=== PATIENT | female | born 1990 | race Caucasian/White ===

== ENCOUNTER → 2023-03-15 15:45 | Outpatient (CLI) | payer OTHER, BC, SELFPAY ==
[2023-03-15 16:03] LABS: Specimen Label NATERA
[2023-03-15 16:34] LABS: Add Manual Diff / Slide Review NO; Basophils Absolute Auto 0 /uL (0-100); Basophils Percent Auto 0.2 % (0-2); Eosinophils Absolute Auto 100 /uL (0-450); Eosinophils Percent Auto 1.5 % (2-4); Hematocrit 37.8 % (36-46); Hemoglobin 12.8 g/dL (12.0-16.0); Lymphocytes Absolute Auto 2300 /uL (1100-4500); Lymphocytes Percent Auto 23.7 % (25-40); Mean Corpuscular Hemoglobin 29.5 PG (26-34); Mean Corpuscular Volume 86.8 fL (80-100); Monocytes Absolute Auto 700 /uL (0-900); Monocytes Percent Auto 6.9 % (3-14); Neutrophils Absolute Auto 6700 /uL (1500-7000); Neutrophils Percent Auto 67.7 % (50-75); Platelet Count 275 X10^3/uL (150-400); Red Blood Cell Count 4.35 X10^6/uL (4.0-5.2); Red Cell Distribution Width 12.6 % (11.6-14.8); White Blood Cell Count 9.9 X10^3/uL (4.5-11.0)
[2023-03-17 06:08] LABS: RPR Screen Non Reactive (Non Reactive)
[2023-03-17 10:07] LABS: Varicella IgG Antibody 695 index (Immune >165)
[2023-03-18 09:16] LABS: HIV 1 & 2 Ab/Ag 4th Gen Combo NEGATIVE (NEGATIVE); Hep C Virus Ab w/Reflex Quant NEGATIVE s/c (NEGATIVE); Hepatitis B Surface Antigen NEGATIVE s/c (NEGATIVE); Rubella Antibody IgG 45.7 IU/mL (>15)
== END ==
PROVIDERS: PCP Registered Nurse; Referring Provider Specialist; Visit Provider Specialist
DX: Z34.81 Encounter for supervision of other normal pregnancy, first trimester (principal)
CPT/HCPCS: 36415; 80055; 86787; 86803; 86850; 86900; 86901; 87389

== ENCOUNTER → 2023-05-06 09:47 | Outpatient (CLI) | payer OTHER, BC, SELFPAY ==
[2023-05-08 21:21] LABS: AFP Value 57.3 ng/mL (.); Gest Age on Col Date 17.6 weeks (.); Insulin Dep Diabetes No (.); OSBR Risk 1IN 4529 (.); Results Report (.); Test Results *Screen Negative* (.)
== END ==
PROVIDERS: Referring Provider Student in an Organized Health Care Education/Training Program; Visit Provider Student in an Organized Health Care Education/Training Program
DX: Z34.82 Encounter for supervision of other normal pregnancy, second trimester (principal); Z3A.17 17 weeks gestation of pregnancy
CPT/HCPCS: 36415; 82105

== ENCOUNTER → 2023-05-29 07:51 | Outpatient (CLI) | payer OTHER, BC, SELFPAY ==
--- NOTE | 2023-05-29 07:52 | DI.US.S_ITS ---
PROCEDURE: US OB >= 14 WEEKS FETUS INDICATIONS: ANATOMY OUTSIDE/PRIOR DATING DATA: Last menstrual period (LMP): 01/03/2023. LMP-based estimated date of delivery (RICK): 10/10/2023. First dating scan (date and location): 03/15/2023. Estimated date of delivery (RICK) from first dating scan: 10/07/2023. The calculations are made using the ultrasound RICK of 10/10/2023. TECHNIQUE: Real-time scanning was performed of the fetus, with image documentation and biometric measurements. COMPARISON: None. FINDINGS: General: A single living intrauterine gestation is present. Presentation: Vertex. Placenta: Placental position is posterior , without previa. Amniotic fluid index: 11.0 cm, normal range is 5-24 cm. Single deepest vertical pocket is 3.3 cm. heart rate: 137 beats per minute. Maternal cervical canal: 5.6 cm long. Normal lower limit is 2.5 cm. biometrics: Biparietal diameter: 5.1 cm. 21 weeks 2 days Head circumference: 19.3 cm. 21 weeks 3 days Abdominal circumference: 16.4 cm. 21 weeks 3 days Femur length: 3.5 cm. 21 weeks 0 days Clinically estimated gestational age: 20 weeks 6 days Composite gestational age from present scan: 21 weeks 2 days Estimated weight and percentile: 512 grams. 68th percentile. Anatomic survey: Neuro: Ventricles are non-dilated at less than 10 mm. Cisterna magna is normal at 3-11 mm. Cerebellum is normal in size and morphology. Nuchal skin fold: Normal at less than 6 mm between 14-21 weeks gestational age. Face: Nose and lips, facial profile are normal. Spine: No evidence for spina bifida. Heart: 4-chambered heart is present, with normal ventricular outflow tracts. Diaphragm: Diaphragm is intact. Stomach: Left-sided stomach is present. Kidneys: No hydronephrosis. Normal is less than 5 mm in 2nd trimester, less than 7 mm in 3rd trimester. Cord: 3-vessel cord has orthotopic insertion. Bladder: Normal in size. Extremities: All 4 extremities identified. IMPRESSION: 1. Single live intrauterine . 2. All anatomy was visualized and it is normal. 3. In the left adnexa there is a hypoechoic focus measuring 3.9 x 2.7 x 2.4 cm which has no vascularity and was nontender during the exam which is of unclear identification. Recommend follow-up on subsequent imaging. Dictated by: Keny Foreman M.D. on 05/29/2023 at 17:01 Approved by: Keny Foreman M.D. on 05/29/2023 at 17:07
== END ==
PROVIDERS: Referring Provider Student in an Organized Health Care Education/Training Program; Visit Provider Student in an Organized Health Care Education/Training Program
DX: Z3A.21 21 weeks gestation of pregnancy (principal); Z34.02 Encounter for supervision of normal first pregnancy, second trimester
CPT/HCPCS: 76811

== ENCOUNTER → 2023-07-05 07:17 | Outpatient (CLI) | payer OTHER, BC, SELFPAY ==
[2023-07-05 09:56] LABS: Hematocrit 35.6 % (36-46)
[2023-07-05 10:34] LABS: GTT (PREG) 1 Hour PP 50gm Dose 142 mg/dL (76-139)
== END ==
PROVIDERS: PCP Registered Nurse; Referring Provider Student in an Organized Health Care Education/Training Program; Visit Provider Student in an Organized Health Care Education/Training Program
DX: Z34.02 Encounter for supervision of normal first pregnancy, second trimester (principal); Z3A.17 17 weeks gestation of pregnancy; Z3A.26 26 weeks gestation of pregnancy
CPT/HCPCS: 36415; 82950; 85014; 85018

== ENCOUNTER → 2023-07-09 07:51 | Outpatient (CLI) | payer OTHER, BC, SELFPAY ==
[2023-07-09 09:46] LABS: Glucose Fasting Gestational 73 mg/dL (76-95)
[2023-07-09 10:17] LABS: Glucose 1 Hour Gest 92 mg/dL (76-180)
[2023-07-09 10:51] LABS: Glucose 2 Hour Gest 110 mg/dL (76-155)
[2023-07-09 11:19] LABS: Glucose Tol Interp,Gestational INTERPRETATION
[2023-07-09 12:02] LABS: Glucose 3 Hour Gest 47 mg/dL (76-140)
== END ==
PROVIDERS: PCP Registered Nurse; Referring Provider Student in an Organized Health Care Education/Training Program; Visit Provider Student in an Organized Health Care Education/Training Program
DX: O99.810 Abnormal glucose complicating pregnancy (principal)
CPT/HCPCS: 36415; 82951; 82952

== ENCOUNTER → 2023-09-12 11:49 | Outpatient (CLI) | payer BC, SELFPAY ==
[2023-09-13 12:42] LABS: Strep Grp B PCR NEG for Grp B Strep
== END ==
PROVIDERS: PCP Registered Nurse; Visit Provider Physician Assistant Medical
DX: Z34.83 Encounter for supervision of other normal pregnancy, third trimester (principal); Z3A.36 36 weeks gestation of pregnancy
CPT/HCPCS: 87653

== ENCOUNTER 2023-10-01 21:45 | Inpatient (IN) | payer BC, SELFPAY ==
--- NOTE | 2023-10-01 22:57 | P.HPOB_ITS ---
OB HPI Date/Time Date of admission: 10/01/23 Date Patient Seen: 10/01/23 Time Patient Seen: 22:57 History of Present Condition Chief complaint: observation of labor : 2 Para: 0 Estimated Date of Delivery: 10/10/23 Estimated Gestational Age (weeks): 38+5 Narrative: Gita Jackson is a 33 year old female Comments: admitted for induction of labor due to PROM at home around 8pm. She has not felt any contractions. Clear fluid with rupture. No vaginal bleeding. Normal movement. Indications Indication for induction OB: other History of Present care: good care Dating criteria: LMP confirmed by 1st trimester US Ultrasounds: normal mid trimester US Obstetrical complications: none Medical complications: none Narrative: Baby boy Eulogio Zuniga AMA--> cfDNA- neg XY; neg carrier screen 2021; neg AFP Abnormal 1hr (142), normal 3hr GTT Eulogio Assigned to Dr. Zabala Preadmission Labs Blood type: B (+) positive -: Antibody screen: negative, Cystic fibrosis screen: negative, GBS status: negative, HBsAG: negative, HIV: negative, HSV 1: unknown, HSV 2: unknown and RPR/VDLR: negative -: Chlamydia screen: not detected and Gonorrhea screen: not detected -: Rubella: immune and Varicella: immune HCT: 35.6 HCAB: negative PAP: Normal Cell-free DNA: low risk XY 1 hr GTT: 142 3 hr GTT: 3 hr (normal) Evaluation Evaluation Baseline heart rate: 140 Variability: Moderate (11-25) monitor accelerations: Present Monitor Decelerations: Absent Contraction Frequency (minutes): 0 Status: Category l Dilation (cm): 1 Effacement (%): 25 Effacement: 0-30% station: -3 Position of cervix: posterior Consistency: medium Non-invasive Membranes Rupture Test: positive PFSH Medical History (Updated 09/06/23 @ 16:40 by Zuly Zabala DO) Seasonal allergies Surgical History (Updated 04/10/23 @ 21:25 by Annabelle Escobar) Anesthesia H/O dilation and curettage Hx of appendectomy (~2004) [place] teeth extracted (~2013) Family History (Updated 03/05/23 @ 14:41 by Ayleen Bess RN) Father Diabetes mellitus Hyperlipidemia Grandmother Diabetes mellitus Colon cancer Grandfather Diabetes mellitus Grandmother Diabetes mellitus Grandfather Diabetes mellitus Mother Hyperlipidemia Social History marital status: number of children: 0 household members: spouse lives independently: Yes caregiver/support person: No housing: house pets and animals: No education level: college occupational status: employed current occupational exposures/hazards: No special harika needs: No travel history: recent seatbelt use: always helmet use: Yes water heater temp set < 120 deg: No working smoke detector in home: Yes fire extinguisher in home: Yes carbon monox detector in home: Yes firearms in home: Yes firearms unloaded and locked: Yes do you feel safe at home: Yes Smoking Status: Never smoker second hand exposure: No alcohol intake: former substance use type: does not use during the past year weight has: remained stable well-balanced diet: daily or most days daily servings fruits/ve or more times/day caffeine: Yes (1 cup coffee in AM) Type(s) of exercise: walking, other, running and yoga Meds Home Medications and Allergies Home Medications Medication Instructions Recorded Confirmed Type vitamin-ferrous sulfate tab PO 03/05/23 09/27/23 History 27 mg iron-folic acid 0.8 mg tablet breast pump #1 ea 08/22/23 09/27/23 Rx Allergies Allergy/AdvReac Type Severity Reaction Status Date / Time No Known Drug Allergies Allergy Unverified 09/27/23 14:57 Review of Systems Review of Systems ROS: Yes All systems reviewed with the patient and are negative except as otherwise documented OB Exam HENMT Head: normal to inspection Resp Effort & Inspection: normal respiratory effort and able to speak in complete sentences Cardio Rate: regular rate Rhythm: regular rhythm Extremities Lower extremity: Yes normal to inspection GI Other: gravid, nontender, nondistended Assessment and Plan Assessment and Plan Assessment and Plan narrative: 33yo at 38+5wks admitted for induction of labor due to PROM at 8pm tonight. We discussed the risk/benefit of waiting for labor to begin, vs. proceeding with induction. After careful consideration and discussion with patient and her , she decided that she would like to proceed with induction. -CBC, T&S on admission -continuous EFM -epidural PRN -GBS neg, ppx not indicated -PPH risk low -VTE risk low, SCDs with epidural -anticipate L&D Counseling: Common procedures and interventions related to the management of were explained to the patient, including assistance at vaginal delivery with episiotomy, vacuum, or forceps, use of medications to stop premature labor or induce labor, and assessment including auscultation (listening to the fe sandrine heart), use of electronic monitoring (external and / or internal), and use of scalp electrode and/or intrauterine pressure catheter.? It was also explained that approximately 20-30% of mothers have a need for delivery during their labor course. It was explained to the patient that , labor and delivery are ordinarily normal physiological events and can be expected to provide a healthy outcome for mother and baby in the majority of cases. However, there are complications that may arise during , labor, and delivery, such as: hemorrhage requiring administration of blood and/or blood products, surgical intervention, possibly even hysterectomy for life-saving purposes; possibility of infection requiring antibiotics, prolonged hospital stay, and rarely surgical intervention; possibility of blood clots;? possibility of retained products of conception requiring surgical intervention;? possibility of serious tears or injury to the vagina, cervix, perineum, or rectum;? possibility of injury to abdominal structures if delivery is required;? and rarely maternal or may occur. Time Spent with Patient Total time spent with greater than 50% in coordination of care (as documented) at patient's floor/unit and/or counseling patient:: 25 - 35 minutes
[2023-10-01 23:51] LABS: Add Manual Diff / Slide Review NO; Basophils Absolute Auto 100 /uL (0-100); Basophils Percent Auto 0.6 % (0-2); Eosinophils Absolute Auto 100 /uL (0-450); Eosinophils Percent Auto 0.6 % (2-4); Hematocrit 36.8 % (36-46); Hemoglobin 12.3 g/dL (12.0-16.0); Lymphocytes Absolute Auto 2200 /uL (1100-4500); Lymphocytes Percent Auto 19.6 % (25-40); Mean Corpuscular HGB Conc 33.4 % (30-36); Mean Corpuscular Volume 86.8 fL (80-100); Monocytes Absolute Auto 900 /uL (0-900); Monocytes Percent Auto 7.8 % (3-14); Neutrophils Absolute Auto 8000 /uL (1500-7000); Neutrophils Percent Auto 71.4 % (50-75); Platelet Count 222 X10^3/uL (150-400); Red Blood Cell Count 4.24 X10^6/uL (4.0-5.2); Red Cell Distribution Width 13.7 % (11.6-14.8); White Blood Cell Count 11.1 X10^3/uL (4.5-11.0)
[2023-10-02] MEDS: miSOPROStoL 25 MCG TABLET 50 MCG PO (00:14)
[2023-10-02 01:19] VITALS: BP 111/76
[2023-10-02] MEDS: ONDANSETRON 4 MG/2 ML INJ IV (08:35)
--- NOTE | 2023-10-02 09:13 | PM.OBPNLAB ---
Date/Time Date Patient Seen: 10/02/23 Time Patient Seen: 09:13 Pain Control Pain control: tolerating well Pelvic Exam Dilation (cm): 3 Effacement (%): 100 station: -1 Amniotic membrane status: Ruptured Contractions Contractions on admission: none Contraction frequency (min): 3 Contraction pattern: Irregular Status status: Category l Heart Rate Baseline: 140 Monitor Accelerations: Present Monitor Decelerations: Absent Monitor Variability: Moderate Assessment and Plan Assessment: induction ongoing Plan: continuous present management Comments: Plan to start pitocin once contractions space out. Epidural prn. Anticipate .
--- NOTE | 2023-10-02 11:06 | PM.AN.REGBLK ---
Regional Block Pre-procedure PSH/Anesthesia history narrative: Appy ASA Class: II Labs: Hct 36.8 % (36-46) 10/01/23 23:35 Plt Count 222 X10^3/uL (150-400) 10/01/23 23:35 Medications: Current Medications Generic Name Dose Route Start Last Admin Trade Name Freq PRN Reason Stop Dose Admin Calcium Carbonate 1,000 mg 10/01/23 22:54 Calcium Carbonate 500 Mg Tab PO Q4HR PRN Dyspepsia Carboprost Tromethamine 250 mcg 10/01/23 22:54 Carboprost 250 Mcg/Ml Ampul IM Q90M PRN Bleeding Oxytocin/Lactated Ringer's 30 unit in 500 mls @ 200 mls/hr 10/01/23 22:54 Oxytocin Premix IV CONT PRN Bleeding Protocol Tranexamic Acid 1,000 mg/ 100 mls @ 200 mls/hr 10/01/23 22:54 Sodium Chloride IV NOW PRN Bleeding Lactated Ringer's 1,000 mls @ 100 mls/hr 10/01/23 23:00 Lactated Ringers IV CONT LINN Oxytocin/Lactated Ringer's 30 unit in 500 mls @ 2 mls/hr 10/02/23 09:15 Oxytocin Premix IV TITRATE REPLACED BY [facility] Protocol 2 MILLIUNIT/MIN Lidocaine HCl 20 ml 10/01/23 22:54 Lidocaine 1% 20 Ml INJ INTRA-OP PRN Post Delivery Methylergonovine Maleate 0.2 mg 10/01/23 22:54 Methylergonovine 0.2 Mg Tablet PO Q6HR PRN Heavy Bleeding Methylergonovine Maleate 0.2 mg 10/01/23 22:54 Methylergonovine 0.2 Mg/Ml Vial IM NOW PRN Bleeding Misoprostol 800 mcg 10/01/23 22:54 Misoprostol 200 Mcg Tablet PA NOW PRN Bleeding Misoprostol 400 mcg 10/01/23 22:54 Misoprostol 200 Mcg Tablet SL NOW PRN Bleeding Misoprostol 50 mcg 10/01/23 23:00 10/02/23 00:14 Misoprostol 25 Mcg Tablet PO 50 mcg Q4H LINN Administration Naloxone HCl 0.2 mg 10/01/23 22:54 Naloxone 0.4 Mg/Ml Vial IV Q2MIN PRN Opiate Reversal Ondansetron HCl 4 mg 10/01/23 22:54 10/02/23 08:35 Ondansetron 4 Mg/2 Ml Inj IV 4 mg Q4HR PRN Administration Nausea And Vomiting Oxytocin 10 unit 10/01/23 22:54 Oxytocin 10 Unit/Ml Vial IM NOW PRN Bleeding Allergies: Allergies Allergy/AdvReac Type Severity Reaction Status Date / Time No Known Drug Allergies Allergy Unverified 09/27/23 14:57 Procedure Insertion date: 10/02/23 Insertion time: 10:21 Prep/Local: 1% lidocaine (chloroprep) Interspace: L2-3 Patient position: sitting Needle: 18 gauge Marlene Loss of resistance with: saline TRINA at (cm): 6 Catheter placed at SKIN (cm): 11 Catheter in SPACE (cm): 5 Insertion: Yes Paresthesia with insertion Infusion Initial rate (mL/hr): 8 Subsequent interventions: 1630 3cc 0.5% marcaine plus 100mcg fentanyl bolused. Epidural infusion increased to 12cc/hr. Pt complaining of low abdominal pain and back pain. Post-procedure Anesthesia date START: 10/02/23 Anesthesia time START: 10:05 Anesthesia date END: 10/02/23 Anesthesia time END: 18:49 Post-procedure Anesthesia Assessment: Yes CV function: HR/BP stable, Yes Resp function: RR/sat/airway adequate, Yes Post-op hydration adequate, Yes Pain control adequate, Yes Nausea & vomiting absent, Yes Temperature > 36 C and Yes Mental status appropriate
[2023-10-02] MEDS: OXYTOCIN PREMIX 30 UNIT/500 ML PLAST..BAG IV (13:12)
--- NOTE | 2023-10-02 19:17 | PM.OBPRVD ---
Events: Premature Rupture Membrane Labor & Delivery Delivery date: 10/02/23 Intrapartal Events: None Cervical ripening method: per misoprostal protocol Induction method: per pitocin protocol Delivery monitor: external FHT and external uterine Route of delivery: Episiotomy description: Midline L&D Laceration Description: Perineal - 2nd Degree Delivery repair: vicryl Estimated blood loss (mL): 300 Anesthesia Type: Epidural Narrative: The patient progressed to C/C/+1 with pitocin augmentation and epidural anesthesia. After approximately 50min of maternal pushing efforts, the delivered to [facility]. With several more pushes, the infant was unable to clear the perineum, thus a modified Ritgen maneuver was attempted to deliver the head, however this was unsuccessful. The heart rate was then noted to be in the 80s sustained, thus decision was made to cut a small 2cm midline episiotomy. The 's head then immediately delivered in OA position and restituted ROT. The anterior shoulder delivered with gentle downward pressure, and the posterior shoulder and rest of body delivered with ease. The cord was doubly clamped and cut after a 60sec delay with the placed on maternal abdomen. The placenta delivered spontaneously and was intact with a 3-vessel cord. The fundus was noted to be firm with bimanual massage and pitocin. Inspection of the cervix, vagina, and perineum was notable for a 2nd degree perineal laceration. Repair was performed using 3-0 Vicryl in a running, unlocked fashion. Skin was reapproximated in a running, subcuticular fashion. At the end of the repair, all tissues noted to be hemostatic. All sponges were removed from the vagina. The patient tolerated delivery well and remained in the labor room with the infant at the bedside. [place] Baby 1: gender: Male score (1 min): 7 score (5 min): 9 weight: 7 lb 14.387 oz Plan for aftercare: Routine care
[2023-10-02] MEDS: IBUPROFEN 600 MG TABLET PO (20:23)
[2023-10-02] MEDS: ACETAMINOPHEN 325 MG TABLET 650 MG PO (20:24)
[2023-10-03] MEDS: ACETAMINOPHEN 325 MG TABLET 650 MG PO ×3 (02:29→14:22)
[2023-10-03] MEDS: IBUPROFEN 600 MG TABLET PO ×3 (02:29→14:22)
[2023-10-03] MEDS: PRENATAL VIT,CALC/IRON/FOLIC 1 TABLET 1 TAB PO (08:21)
[2023-10-03] MEDS: DOCUSATE 100 MG CAPSULE PO (08:21)
--- NOTE | 2023-10-03 14:33 | P.DS_ITS ---
Discharge Providers Provider Date of admission: 10/01/23 21:45 Discharge Date: 10/03/23 Primary care physician: JOANA Wilson Consults: 10/01/23 22:54 Consult to Anesthesiology Urgent Comment: Consulting Provider: Anesthesiologist Reason for consultation: Epidural 10/03/23 19:15 Consult to Senior Associate Routine Comment: Discharge provider: Zuly Zabala DO Summary Hospital Course Date Patient Seen: 10/03/23 Time Patient Seen: 11:30 Diagnoses: 1. Term gestation at 38+6wks 2. Prelabor rupture of membranes Hospital Course: 33yo [id number] admitted at 38+5wks for induction of labor due to prelabor rupture of membranes. She progressed to an uncomplicated vaginal delivery, productive of a viable male infant weighing 3583g with APGARs 7/9. Her course was uncomplicated. On day #1, she was ambulating, tolerating regular diet, voiding spontaneously with minimal lochia. Her pain was well controlled with oral medications, thus she was discharged to home on day #1. Peripartum Data Infant Delivery Method: Natural Vaginal Laceration Description: Perineal - 2nd Degree Episiotomy description: Midline Procedures: External monitoring Induction of labor Epidural anesthesia Spontaneous vaginal delivery Perineal episiotomy repair complications: none Discharge Diagnosis (1) Normal vaginal delivery: Status: Acute (2) Premature rupture of membranes: Status: Acute (3) Abnormal [place]ore glucose challenge test, antepartum: Status: Acute (4) Elderly primigravida, antepartum: Status: Acute Status at Discharge Cognitive/behavioral status at discharge: oriented Functional status at discharge: independent ambulation Overall status at discharge: patient is progressing back to baseline Time Spent with Patient Time attestation: Total time spent providing and/or coordinating discharge services: Time spent: Less than 30 minutes Objective Labs 10/01/23 23:35 Exam Vital Signs (past 8 hours): vitals reviewed in OBIX, within normal parameters Const General: cooperative, healthy appearing, comfortable and No acute distress Resp Effort & Inspection: normal respiratory effort GI Inspection: normal to inspection Other: fundus firm and nontender at U-2 Skin General: no rashes or lesions noted Neuro General: patient alert and patient awake Extrem General: normal to inspection, no pedal edema and no calf tenderness Psych Mood: congruent mood Affect: normal affect Discharge Plan Discharge Plan Patient Disposition: Home Provider Discharge Comment: Take ibuprofen 600 mg every 6 hours and acetaminophen 650 mg every 6 hours as needed for pain. You may use witch Luna pads, Sitz baths, and preparation H for hemorrhoid discomfort. Avoid constipation by drinking plenty of fluids, eating fiber, and use docusate (stool softener) as needed. Avoid placing anything in the vagina for at least 6 weeks. Discharge orders & Medications Prescriptions: Continued (DME) breast pump Device See Rx Instructions .ROUTE .MEDSUPPLY Qty: 1 0RF Rx Instructions: As directed vit-ferrous sulfat-FA 27 mg iron- 0.8 mg tablet PO Follow up/Referrals: Zuly Zabala DO [Physician] - 11/14/23 10:15 am Diet/Activity/Treatments Diet: Diet as Tolerated Activity: Ambulate as tolerated Skin/Wound/Dressing Care Report to your healthcare provider any signs of infection, such as:: chills, fever, increased pain, unusual drainage and unusual redness Visit Report/Discharge Packet Instructions: DI for Labor and Delivery, Vaginal Stand Alone Forms: Discharge: Care, Patient Portal/API, Stroke Signs & Symptoms Discharge Data Primary Care Provider: Trena Wilder
== END 2023-10-03 17:20 | disposition home or self-care (01) | DRG 807 ==
PROVIDERS: Admitting Provider Student in an Organized Health Care Education/Training Program; PCP Registered Nurse; Referring Provider Student in an Organized Health Care Education/Training Program; Visit Provider Student in an Organized Health Care Education/Training Program
DX: O42.02 Full-term premature rupture of membranes, onset of labor within 24 hours of rupture (principal); Z37.0 Single live birth; O70.1 Second degree perineal laceration during delivery; Z3A.38 38 weeks gestation of pregnancy
CPT/HCPCS: 36415; 59050; 59200; 59400; 84112; 85025; 86850; 86900; 86901; G0379; J2405; J2590; J3010

== ENCOUNTER 2024-10-23 07:54 | Emergency (ER) | payer BC, SELFPAY ==
[2024-10-23] VITALS (8 sets, daily range): BP systolic 100–114; BP diastolic 56–73; PULSE 68–83; RESP 18; TEMP 36.9; O2SAT 98–100; BMI 23.1
--- NOTE | 2024-10-23 09:09 | ED_ITS ---
HPI - Neck Pain/Injury General Chief Complaint: Neck Pain/Injury Stated Complaint: Neck pain , Low blood pressure Time Seen by Provider: 10/23/24 09:07 Mode of arrival: Ambulatory History of Present Illness HPI Narrative: 34-year-old female present with left-sided neck pain that radiates down the left arm on yesterday and has restriction in movement of the neck in all directions that started yesterday despite taking 2 doses of Tylenol with no significant relief of symptoms. Patient denies rashes, fever, chills, stiff neck, trauma, sick contacts, chest pain, shortness of breath, cough. Other than what is stated 14 point review of system is negative Related Data Home Medications Medication Instructions Recorded Confirmed vitamin-ferrous sulfate tab PO 03/05/23 11/14/23 27 mg iron-folic acid 0.8 mg tablet Previous Rx's Medication Instructions Recorded breast pump #1 ea 08/22/23 norethindrone (contraceptive) 0.35 0.35 mg PO DAILY #84 tabs 11/14/23 mg tablet cyclobenzaprine 5 mg tablet 5 mg PO TID PRN muscle spasm #30 10/23/24 tabs diclofenac potassium 50 mg tablet 50 mg PO TID PRN pain #30 tabs 10/23/24 prednisone 20 mg tablet 20 mg PO DAILY 5 days #5 tabs 10/23/24 Allergies Allergy/AdvReac Type Severity Reaction Status Date / Time No Known Drug Allergies Allergy Unverified 11/14/23 10:32 Review of Systems Review of Systems ROS Unobtainable: All systems reviewed & are unremarkable except as noted in HPI and below Patient History Medical History (Updated 10/23/24 @ 09:26 by Zander Chang DO) Seasonal allergies Surgical History (Updated 04/10/23 @ 21:25 by Annabelle Escobar) Anesthesia H/O dilation and curettage Hx of appendectomy (~2004) [place] teeth extracted (~2013) Family History (Updated 03/05/23 @ 14:41 by Ayleen Bess RN) Father Diabetes mellitus Hyperlipidemia Grandmother Diabetes mellitus Colon cancer Grandfather Diabetes mellitus Grandmother Diabetes mellitus Grandfather Diabetes mellitus Mother Hyperlipidemia Social History marital status: number of children: 0 household members: spouse lives independently: Yes caregiver/support person: No housing: house pets and animals: No education level: college occupational status: employed current occupational exposures/hazards: No special harika needs: No travel history: recent seatbelt use: always helmet use: Yes water heater temp set < 120 deg: No working smoke detector in home: Yes fire extinguisher in home: Yes carbon monox detector in home: Yes firearms in home: Yes firearms unloaded and locked: Yes do you feel safe at home: Yes Smoking Status: Never smoker second hand exposure: No alcohol intake: former substance use type: does not use during the past year weight has: remained stable well-balanced diet: daily or most days daily servings fruits/ve or more times/day caffeine: Yes (1 cup coffee in AM) Type(s) of exercise: walking, other, running and yoga Smoking Status: Never smoker Exam Narrative Exam Narrative: GENERAL: [81] year old patient appears stated age. Well-developed patient, in mild distress. HEAD: Atraumatic. Normocephalic. EYES: Pupils equal round and reactive. Extraocular motions intact. No scleral icterus. No injection or drainage. NECK: Trachea midline. Non tender, No meningeal signs/neg bruzinksi, neg kernig, dec rom in flex/extend/sb/rotation in all directions CARDIOVASCULAR: Regular rate and rhythm without murmurs, gallops, or rubs. RESPIRATORY: Clear to auscultation. Breath sounds equal bilaterally. No wheezes, rales, or rhonchi. EXTREMITIES: No edema or joint tenderness. BACK: Nontender without deformity or crepitance. No flank tenderness. NEURO: AOx3. SKIN: No rash or erythema of visible areas Initial Vital Signs Initial Vital Signs: Vital Signs Temperature 98.4 F 10/23/24 08:05 Pulse Rate 83 10/23/24 08:05 Respiratory Rate 18 10/23/24 08:05 Blood Pressure 104/65 10/23/24 08:05 Pulse Oximetry 100 10/23/24 08:05 Oxygen Delivery Method Room Air 10/23/24 08:05 Course Vital Signs Vital signs: Vital Signs - 8 hr 10/23/24 08:05 10/23/24 08:11 10/23/24 08:12 Temperature 98.4 F Pulse Rate 83 72 Pulse Rate [Orthostatic Lying] Pulse Rate [Orthostatic Sitting] Pulse Rate [Orthostatic Standing] Respiratory Rate 18 Blood Pressure 104/65 100/56 L Blood Pressure [Orthostatic Lying] Blood Pressure [Orthostatic Sitting] Blood Pressure [Orthostatic Standing] Pulse Oximetry 100 100 Oxygen Delivery Method Room Air 10/23/24 08:12 10/23/24 08:13 10/23/24 08:13 Temperature Pulse Rate 68 79 Pulse Rate [Orthostatic Lying] Pulse Rate [Orthostatic Sitting] Pulse Rate [Orthostatic Standing] Respiratory Rate Blood Pressure 114/66 Blood Pressure [Orthostatic Lying] Blood Pressure [Orthostatic Sitting] Blood Pressure [Orthostatic Standing] Pulse Oximetry 100 100 Oxygen Delivery Method 10/23/24 08:20 Temperature Pulse Rate Pulse Rate [Orthostatic Lying] 72 Pulse Rate [Orthostatic Sitting] 79 Pulse Rate [Orthostatic Standing] 78 Respiratory Rate Blood Pressure Blood Pressure [Orthostatic Lying] 100/56 L Blood Pressure [Orthostatic Sitting] 114/66 Blood Pressure [Orthostatic Standing] 113/67 Pulse Oximetry Oxygen Delivery Method MDM - Neck Pain/Injury MDM Narrative Medical decision making narrative: Patient given Toradol Decadron and Norflex here DC home on diclofenac cyc lobenzaprine and prednisone. On differential diagnosis include sprain strain cervical radiculopathy shingles. Vital Signs, nurse triage note, old medical records, previous MD visits all reviewed. Return with new or worsening symptoms Discharge Plan Departure Patient Disposition: Home Clinical Impression: Cervical radicular pain Instructions: DI for Cervical Radiculopathy Prescriptions: New diclofenac potassium 50 mg tablet 50 mg PO TID PRN (Reason: pain) Qty: 30 0RF prednisone 20 mg tablet 20 mg PO DAILY 5 Days Qty: 5 0RF Rx Instructions: days 11-21 of therapy cyclobenzaprine 5 mg tablet 5 mg PO TID PRN (Reason: muscle spasm) Qty: 30 0RF No Action (DME) breast pump Device See Rx Instructions .ROUTE .MEDSUPPLY Qty: 1 0RF Rx Instructions: As directed vit-ferrous sulfat-FA 27 mg iron- 0.8 mg tablet PO norethindrone (contraceptive) 0.35 mg tablet 0.35 mg PO DAILY Qty: 84 3RF Referrals: Trena Wilder ARNP [Primary Care Provider] - Stand Alone Forms: Patient Portal/API/Survey
[2024-10-23] MEDS: DEXAMETHASONE 10 MG/ML VIAL 6 MG IM (09:39)
[2024-10-23] MEDS: CYCLOBENZAPRINE 10 MG TABLET PO (09:39)
[2024-10-23] MEDS: KETOROLAC 30 MG/ML VIAL 15 MG IM (09:40)
== END 2024-10-23 09:53 | disposition home or self-care (01) ==
PROVIDERS: Emergency Provider Family Medicine; PCP Registered Nurse
DX: M54.12 Radiculopathy, cervical region (principal)
CPT/HCPCS: 96372; 99283; J1100; J1885